=== PATIENT | male | born 2000 | race African-American/Black ===

== ENCOUNTER 2018-10-03 13:35 | Emergency (ER) | payer OTHER ==
[2015-03-23 14:30] VITALS: BP 136/66
[~2018-10-03] VITALS: Ht 177.8 cm; Wt 97.5 kg
[~2018-10-03 13:35] MED LIST: OXYC1TAB19 PO
--- NOTE | 2018-10-03 13:56 | PHYS DOC ---
Past Medical History Past Medical History: No Pertinent History Past Surgical History: Other Additional Past Surgical Histo: left shoulder Alcohol Use: None Drug Use: None Adult General Chief Complaint Chief Complaint: OTHER COMPLAINTS HPI HPI Patient is a 18 year old male who presents to the ED today complaining of 7 out of 10 bilateral feet pain that has been going on for 2-3 months. Patient denies any known injury. Describes the pain as throbbing and worse when he is running or walking. Denies anything specifically relating his pain. He states he is about to go to college and plays football and would like to be checked out before he goes back to college. Review of Systems Review of Systems Constitutional: Denies fever or chills [] Musculoskeletal: Reports bilateral feet pain Integument: Denies rash or skin lesions [] Neurologic: Denies headache, focal weakness or sensory changes [] All other systems were reviewed and found to be within normal limits, except as documented in this note. Allergies Allergies Allergies Coded Allergies Type Severity Reaction Last Updated Verified No Known Drug Allergies 03/21/15 No Physical Exam Physical Exam Constitutional: Well developed, well nourished, no acute distress, non-toxic appearance. [] Skin: Warm, dry, no erythema, no rash. [] Back: No tenderness, no CVA tenderness. [] Extremities: Bilateral feet with no obvious deformity, flat feet. No tenderness on exam. Full range of motion to bilateral feet. +2 bilateral pedal pulses. Cap refill less than 2 seconds bilateral lower extremities. Sensation intact. Neurologic: Alert and oriented X 3, normal motor function, normal sensory function, no focal deficits noted. [] Psychologic: Affect normal, judgement normal, mood normal. [] Current Patient Data Vital Signs Vital Signs Date Time Temp Pulse Resp B/P (MAP) Pulse Ox O2 Delivery O2 Flow Rate FiO2 10/03/18 14:07 97.7 67 18 133/61 (85) 96 Room Air 97.7 EKG EKG [] Radiology/Procedures Radiology/Procedures []PROCEDURE: FOOT BILAT 3V Examination: 3 views of the right foot History: History of plantar foot pain for 2 to 3 months hurts to run Comparison: None available Findings: The alignment of the tarsal bones, tarsometatarsal joints, interphalangeal joints grossly appears unremarkable. There is no obvious acute fracture or dislocation identified. Impression: No acute osseous findings. DICTATED and SIGNED BY: PRIYA NATHAN MD DATE: 10/03/18 1428 Course & Med Decision Making Course & Med Decision Making Pertinent Labs and Imaging studies reviewed. (See chart for details) This is a 18-year-old male patient presented to the ED today with bilateral feet pain for 2-3 months. Bilateral feet x-rays interpreted by radiologist are negative for any acute findings. Talked to patient about possibility of having p lantar fasciitis. Recommended padding his shoes well. Provided orthopedic doctor for follow-up. Diclofenac for pain. Ice and elevation. Dragon Disclaimer Dragon Disclaimer This electronic medical record was generated, in whole or in part, using a voice recognition dictation system. Departure Departure Impression: Primary Impression: Plantar fasciitis Additional Impression: Pain in both feet Disposition: 01 HOME, SELF-CARE Condition: STABLE Referrals: UNKNOWN PCP NAME (PCP) RAI TAM II, MD follow up in 1- 2 week,s Patient Instructions: Plantar Fasciitis Additional Instructions: You were evaluated in the emergency room for bilateral feet pain. Your bilateral feet x-rays are negative for any acute findings. There is a chance he could have plantar fasciitis considering you have flatfoot. Try and get good insoles for your shoes. Follow-up with your own doctor or the provided orthopedic doctor in 1-2 weeks. Try to ice and elevate the extremities. Scripts Diclofenac Sodium (DICLOFENAC SODIUM) 50 Mg Tablet.dr 1 TAB PO BID, #20 TAB 0 Refills Prov: BILL HA APRN 10/03/18 Problem Qualifiers BILL HA APRN Oct 03, 2018 13:55
--- NOTE | 2018-10-03 14:28 | RAD ---
Examination: 3 views of the right foot History: History of plantar foot pain for 2 to 3 months hurts to run Comparison: None available Findings: The alignment of the tarsal bones, tarsometatarsal joints, interphalangeal joints grossly appears unremarkable. There is no obvious acute fracture or dislocation identified. Impression: No acute osseous findings.
[2018-10-03] MEDS ORDERED: DICL50TA4 PO (15:15)
[2018-10-03] MEDS ORDERED: DICL50TA2 PO (15:18)
== END 2018-10-03 15:26 | disposition home or self-care (01) ==
LOC: ER 13:35
DX: M72.2 Plantar fascial fibromatosis (principal); M79.671 Pain in right foot; M79.672 Pain in left foot
CPT/HCPCS: 73630; 99284